=== PATIENT | male | born 1980 | race Native Hawaiian/Other Pacific Islander ===

== ENCOUNTER 2017-08-29 10:22 | Emergency (ER) | payer OTHER ==
[2017-08-29] MEDS ORDERED: KETOROLAC 60 MG/2 ML VIAL IM STA (11:49)
--- NOTE | 2017-08-29 11:50 | ED Physician Documentation ---
History of Present Illness - Stated complaint Stated Complaint: LT FOOT SWELLING - Chief complaint Chief Complaint: Ext Problem - History obtained from History obtained from: Patient - History of Present Illness Timing: Other (Without specific injury this gentleman complains of 3 days of pain that is worsening, he points to basically the area of the anterior Lateral malleolus of the left ankle. It is worse if he walks. He tried ibuprofen and Flexeril without relief E. He has never had this before. No fevers or chills. No trauma.) Review of Systems Constitutional: denies: Fever, Chills GI: denies: Abdominal Pain, Nausea, Vomiting : denies: Dysuria, Frequency PD PAST MEDICAL HISTORY - Present Medications Home Medications: Ambulatory Orders Medication Instructions Recorded Confirmed Colchicine 0.6 mg PO DAILY 08/29/17 Colchicine [Mitigare] 2 tab PO ONCE #3 capsule 08/29/17 Cyclobenzaprine [Flexeril] 08/29/17 HYDROcod/ACETAM 5/325 [[place] 5/325] 1 - 2 ea PO Q6H PRN #15 tablet 08/29/17 Indomethacin [Indocin] 25 mg PO BIDWM #10 capsule 08/29/17 predniSONE [Deltasone] 60 mg PO DAILY 5 Days tablet 08/29/17 - Allergies Allergies/Adverse Reactions: Allergies Allergy/AdvReac Type Severity Reaction Status Date / Time No Known Drug Allergies Allergy Verified 08/29/17 12:13 PD ED PE NORMAL - Vitals Vital signs reviewed: Yes - General General: Alert and oriented X 3, No acute distress - Extremities Extremities: Other (The ankle is tender over both malleoli with some swelling, it is not warm or red though and I can range it passively without significant pain.) - Neuro Neuro: Alert and oriented X 3, Normal speech Results - Vitals Vitals: Vital Signs - 24 hr 08/29/17 10:30 Temperature 36.9 C Heart Rate 97 Respiratory 18 Rate Blood Pressure 149/106 H O2 Saturation 96 Oxygen O2 Source Room air - Labs Labs: Laboratory Tests 08/29/17 08/29/17 08/29/17 12:10 12:10 12:10 WBC 12.6 H RBC 4.97 Hgb 16.2 Hct 45.9 MCV 92.5 MCH 32.6 H MCHC 35.2 RDW 12.0 Plt Count 242 MPV 7.5 Neut # 9.1 H Lymph # 1.8 [place] # 0.9 Eos # 0.7 Baso # 0.1 Absolute Nucleated RBC 0.00 Nucleated RBC % 0.0 ESR 8 Sodium 137 Potassium 3.7 Chloride 101 Carbon Dioxide 25 Anion Gap 11.0 BUN 13 Creatinine 0.9 Estimated GFR (MDRD) 95 Glucose 94 Uric Acid 7.5 H Calcium 9.5 Total Bilirubin 0.7 AST 37 ALT 65 H Alkaline Phosphatase 64 C-Reactive Protein 3.6 H Total Protein 8.4 H Albumin 4.9 Globulin 3.5 Albumin/Globulin Ratio 1.4 Lipase 13 L PD MEDICAL DECISION MAKING - ED course ED course: 37-year-old gentleman with apparent gout in his ankle, uric acid is high and x- ray is negative. Minimal elevation in inflammatory markers and no clinical evidence of infection. Departure - Departure Disposition: 01 Home, Self Care Clinical Impression: Gout attack Qualifiers: Gout site: ankle Encounter type: initial encounter Laterality: left Condition: Good Record reviewed to determine appropriate education?: Yes Instructions: ED Diet Gout, ED Arthritis Gout Prescriptions: Colchicine [Mitigare] 2 tab PO ONCE #3 capsule HYDROcod/ACETAM 5/325 [[place] 5/325] 1 - 2 ea PO Q6H PRN #15 tablet PRN Reason: Pain Indomethacin [Indocin] 25 mg PO BIDWM #10 capsule predniSONE [Deltasone] 60 mg PO DAILY 5 Days tablet Comments: Call your doctor to arrange a follow-up appointment, make the next available appointment. In the interim, return anytime if worse or if new symptoms develop. Your blood pressure was elevated today on check into the emergency department. This does not mean that you have hypertension, it is a common phenomenon to come to the emergency department and have elevated blood pressure. I recommend that you see your primary care physician within the week to have it rechecked when you are feeling better.
[2017-08-29 12:27] LABS: BASOPHILS # (AUTO) 0.1 10^3/uL (0.0-0.1); BASOPHILS % (AUTO) 0.8 %; EOSINOPHILS # (AUTO) 0.7 10^3/uL (0.0-0.7); EOSINOPHILS % (AUTO) 5.8 %; HGB - HEMOGLOBIN 16.2 g/dL (14.0-18.0); LYMPHOCYTES # (AUTO) 1.8 10^3/uL (1.5-3.5); LYMPHOCYTES % (AUTO) 14.5 %; MEAN CORPUSCULAR HEMOGLOBIN 32.6 pg (27.0-31.0); MEAN CORPUSCULAR HGB CONC 35.2 g/dL (32.0-36.0); MEAN CORPUSCULAR VOLUME 92.5 fL (80.0-94.0); MEAN PLATELET VOLUME 7.5 fL (7.4-11.4); MONOCYTES # (AUTO) 0.9 10^3/uL (0.0-1.0); MONOCYTES % (AUTO) 7.1 %; NEUTROPHILS # (AUTO) 9.1 10^3/uL (1.5-6.6); NEUTROPHILS % (AUTO) 71.8 %; PLT - PLATELET COUNT 242 10^3/uL (130-450); RED BLOOD COUNT 4.97 10^6/uL (4.70-6.10); WHITE BLOOD COUNT 12.6 x10^3/uL (4.8-10.8)
[2017-08-29 12:35] LABS: ALBUMIN 4.9 g/dL (3.2-5.5); ALBUMIN/GLOBULIN RATIO 1.4 (1.0-2.2); BILIRUBIN,TOTAL 0.7 mg/dL (0.2-1.0); CALCIUM 9.5 mg/dL (8.5-10.3); CREATININE 0.9 mg/dL (0.6-1.2); CRP - C-REACTIVE PROTEIN 3.6 mg/dL (0-1.0); TOTAL PROTEIN 8.4 g/dL (6.7-8.2); URIC ACID 7.5 mg/dL (2.6-7.2)
--- NOTE | 2017-08-29 13:04 | XRAY Preliminary Report ---
Exam: XR ANKLE 3 VIEW LT IMPRESSION: Normal ankle radiography. [facility] SITE ID: [id number]
--- NOTE | 2017-08-29 13:04 | XRAY Report ---
EXAM: LEFT ANKLE RADIOGRAPHY EXAM DATE: 08/29/2017 12:10 PM. CLINICAL HISTORY: Ankle pain. COMPARISON: None. TECHNIQUE: 3 views. FINDINGS: Bones: Normal. No fractures or bone lesions. Joints: Normal. No effusion. No subluxations. The ankle mortise is normally aligned. Soft Tissues: soft tissue swelling. IMPRESSION: Normal ankle radiography. [facility] Referring Provider Line: [phone] SITE ID: [id number]
[2017-08-29 13:29] VITALS: BP 147/105
== END 2017-08-29 13:30 | disposition home or self-care (01) ==
LOC: ED 10:22
DX: M10.072 Idiopathic gout, left ankle and foot (principal); R03.0 Elevated blood-pressure reading, without diagnosis of hypertension
CPT/HCPCS: 36415; 80053; 83690; 84550; 85025; 85651; 86140; 96372; 99283

== ENCOUNTER 2021-08-30 11:03 | Emergency (ER) | payer OTHER ==
[2021-08-30 11:18] VITALS: BP 158/103
[2021-08-30] MEDS ORDERED: KETOROLAC 60 MG/2 ML VIAL IM STA (11:48)
[2021-08-30] MEDS ORDERED: DEXAMETHASONE 10 MG/ML VIAL IM STA (11:48)
--- NOTE | 2021-08-30 11:51 | ED Physician Documentation ---
History of Present Illness - Stated complaint Stated Complaint: GOUT FLARE LT FOOT PX - Chief complaint Chief Complaint: Ext Problem - History obtained from History obtained from: Patient - Additonal information Additional information: The patient comes to the emergency department with chief complaint of gout flareup. It is his left great toe and first MTP joint that is bothering him. The patient has history of gout and has seen a boiler shop supervisor for this before. He states that he has colchicine and prednisone at home, though these are from a different flareup. He states that he just felt that the pain was getting to be too much and was hoping that he could get a steroid injection at the site of the pain. Patient denies any fevers or chills. No other complaints at this time. Review of Systems Ten Systems: 10 systems reviewed and negative Constitutional: reports: Reviewed and negative Eyes: reports: Reviewed and negative Ears: reports: Reviewed and negative Nose: reports: Reviewed and negative Throat: reports: Reviewed and negative Cardiac: reports: Reviewed and negative Respiratory: reports: Reviewed and negative GI: reports: Reviewed and negative : reports: Reviewed and negative Skin: reports: Reviewed and negative Musculoskeletal: reports: Joint pain, Joint swelling Neurologic: reports: Reviewed and negative Psychiatric: reports: Reviewed and negative Endocrine: reports: Reviewed and negative Immunocompromised: reports: Reviewed and negative PD PAST MEDICAL HISTORY - Past Medical History Respiratory: Sleep apnea, CPAP use - Past Surgical History Past Surgical History: No - Present Medications Home Medications: Ambulatory Orders Medication Instructions Recorded Confirmed Colchicine 0.6 mg PO DAILY 08/29/17 Colchicine [Mitigare] 2 tab PO ONCE #3 capsule 08/29/17 Cyclobenzaprine [Flexeril] 08/29/17 HYDROcod/ACETAM 5/325 [[place] 5/325] 1 - 2 ea PO Q6H PRN #15 tablet 08/29/17 Indomethacin [Indocin] 25 mg PO BIDWM #10 capsule 08/29/17 predniSONE [Deltasone] 60 mg PO DAILY 5 Days tablet 08/29/17 predniSONE [Deltasone] 10 mg PO [id number] #42 tab 08/30/21 - Allergies Allergies/Adverse Reactions: Allergies Allergy/AdvReac Type Severity Reaction Status Date / Time No Known Drug Allergies Allergy Verified 08/30/21 11:19 - Social History Does the pt smoke?: No Smoking Status: Never smoker Does the pt drink ETOH?: No Does the pt have substance abuse?: No - Immunizations Immunizations are current?: Yes - POLST Patient has POLST: No PD ED PE NORMAL - Vitals Vital signs reviewed: Yes - General General: Alert and oriented X 3, No acute distress, Well developed/nourished - HEENT HEENT: Atraumatic, PERRL, EOMI, Moist mucous membranes - Neck Neck: Supple, no meningeal sign - Cardiac Cardiac: Strong equal pulses - Respiratory Respiratory: No respiratory distress - Derm Derm: Normal color, Warm and dry, No rash - Extremities Extremities: No deformity, Other (Mild edema left great toe at MTP joint with mild erythema. Mild tenderness at the site.) - Neuro Neuro: Alert and oriented X 3 - Psych Psych: Normal mood, Normal affect Results - Vitals Vitals: Vital Signs - 24 hr 08/30/21 11:13 Temperature 36 C L Heart Rate 88 Respiratory 16 Rate Blood Pressure 158/103 H O2 Saturation 99 Oxygen O2 Source Room air PD MEDICAL DECISION MAKING - ED course Complexity details: considered differential, d/w patient ED course: I discussed with the patient that we do not do joint injections in the emergency department. I have given him doses of Toradol and Decadron here. He may take colchicine and a short course of prednisone at home. The patient does not wish to be off work. Departure - Departure Disposition: 01 Home, Self Care Clinical Impression: Gout attack Qualifiers: Gout site: foot Gout etiology: unspecified cause Laterality: left Qualified Code(s): M10.9 - Gout, unspecified Condition: Stable Instructions: ED Arthritis Gout Prescriptions: predniSONE [Deltasone] 10 mg PO [id number] #42 tab
== END 2021-08-30 12:25 | disposition home or self-care (01) ==
LOC: ED 11:03
DX: M10.9 Gout, unspecified (principal)
CPT/HCPCS: 99283